=== PATIENT | female | born 1940 | race Caucasian/White ===

== ENCOUNTER 2023-04-16 10:09 | Emergency (ER) | payer OTHER, SELFPAY ==
[2023-04-16 10:15] VITALS: BP 142/88
--- NOTE | 2023-04-16 11:09 | ED.GENMED ---
History of Present Illness
General
Chief Complaint: Nose Bleed
Source: patient
Exam Limitations: none
Time Seen by Provider: 04/16/23 10:21
Nursing documentation reviewed up to this point in time: agreed with
Travel History
Have you had any contact with someone who has COVID-19?: No
Do you have any symptoms of coronavirus? Fever > 100 degrees, chills, cough, shortness of breath, sore throat, loss of taste or smell, muscle aches, or headache?: No
History of Present Illness
History of Present Illness:
Patient is a 82-year-old female who presents the ER for complaints of nosebleed from left nostril. She reports this is the fourth nosebleed in the past 3 weeks. With prior nosebleed she was able to stop them at home. She denies any blood
thinners. Denies any lightheaded dizziness.
Past History
Past History
ED Past Medical History: HTN, Other (Osteoarthritis ) and Other (DVT, pneumonia)
ED Past Surgical History: Appendectomy and Orthopedic (Bilateral knee replacements, lumbar laminectomy )
Social History
Tobacco: Non-smoker
Alcohol: None
Personal:
Living: with family
Family History
Family History: Hypertension
Review of Systems
Review of Systems
Allergies reviewed?: Yes
All Other Systems: ROS reviewed and negative except as documented in HPI and ROS
Constitutional: Reports no symptoms; Denies fever, fatigue or chills
EENT: Reports other (left nares with nose bleed )
Respiratory: Reports no symptoms
Cardiac: Reports no symptoms
ABD/GI: Reports no symptoms
Musculoskeletal: Reports no symptoms
Skin: Reports no symptoms
Neurological: Reports no symptoms; Denies dizzy or headache
Hematologic/Lymphatic: Reports no symptoms
Psychiatric: Reports no symptoms
Phy Exam
General Physical Exam
General Presentation: no apparent distress
General age: appears stated age
General Skin: warm and dry
General Habitus: normal
General Mental: alert
General Hydration: appears well hydrated
ENT Exam
ENT Exam: EOMI, neck supple and other (Left nares with oozing of bright red blood)
Eye Exam
Eye Exam: PERRL and EOMI
Eye Exam General: PERRL: bilateral and EOM intact: bilateral
Pupil Exam: Bilateral: round and reactive
Neurological Exam
Neurological Exam: alert and oriented x3
Musculoskeletal Exam
Musculoskeletal Exam: full ROM
Skin Exam
Skin Exam: normal color and warm/dry
Psychiatric Exam
Psychiatric Exam: normal mood/affect
Course
Orders/Labs/Results
Orders:
Orders
04/16/23 11:08
IV Insert/Care/Rem.- Treatment PRN
04/16/23 11:21
Complete Blood Count/With Diff Urgent
Comprehensive Metabolic Panel Urgent
Abnormal Lab Results
04/16/23
11:21
Lymphocytes % 20.2 L %
(20.5-51.1)
Creatinine 0.5 L mg/dL
(0.6-1.0)
Glucose 115 H mg/dl
(70-99)
04/16/23 11:21
04/16/23 11:21
Vital Signs
Initial and Last Documented VS:
Initial Vital Signs
Temp Pulse Resp BP Pulse Ox
98.6 F 64 18 142/88 99
04/16/23 10:15 04/16/23 10:15 04/16/23 10:15 04/16/23 10:15 04/16/23 10:15
Last Documented Vital Signs
Temp Pulse Resp BP Pulse Ox
98.6 F 77 18 156/81 99
04/16/23 10:15 04/16/23 13:19 04/16/23 13:19 04/16/23 13:19 04/16/23 13:19
Procedures
Nosebleed
Drug treatment: Lidocaine and Epinephrine
Treatment: Merocel packing
Post treatment bleeding: none- good control
MDM/Problems Addressed
Differential Diagnosis Includes:
Not limited to epistaxis, anemia
MDM/Problems Addressed:
Patient presented to the ER with left nares epistaxis. She has had 4 episodes in the past 3 weeks not associated with headaches. She denies any dizziness lightheadedness. She is not on blood thinners. She was packed with Murocel packing,
monitored here no further bleeding will DC with ENT. stable labs
Chronic conditions affecting care:
htn
*Pulse Oximetry
Patient hypoxic: no
*Critical Care Note
Total Time (30-74mins, 75-104mins- exclusive of procedures): Not Applicable
ED Attending Note
-
Portions of this chart may have been created with voice recognition software.� Occasional wrong word or��sound alike� substitutions may have occurred due to the inherent limitations of voice recognition software.
Discharge Plan
Departure
Patient Disposition: Home (Routine Discharge)
Date of Disposition: 04/16/23
Time of Disposition: 13:03
Patient with high blood pressure during this ER visit?: Yes
Covid-19: Not Applicable
Discharge Problem:
Epistaxis
Instructions: Nosebleeds (DC), BLOOD PRESSURE
Prescriptions:
No Action
levothyroxine 100 MCG tablet
100 mcg PO DAILY AT 0700
acetaminophen [Tylenol Extra Strength] 500 MG tablet
500 mg PO Q4HPRN PRN (Reason: pain)
ascorbic acid (vitamin C) [Vitamin C] 500 MG tablet
500 mg PO DAILY
vitamin B complex 1 TAB tablet
1 tab PO DAILY
multivitamin with folic acid [Tab-A-Shawn] 1 TABLET tablet
1 tab PO DAILY
Ginkgo Biloba
1 tab PO DAILY
Vitamin B12:
1 tab PO DAILY
Vitamin D3
1 tab PO DAILY
Sleep Aid
1 tab PO HS PRN (Reason: sleep)
sennosides [senna] 1 TABLET tablet
2 tab PO BID 0RF
diazepam 5 MG tablet
5 mg PO BID PRN (Reason: muscle spasm/sleep) Qty: 10 0RF
Rx Instructions:
*Do not take if taking Lorazepam
vit C,I-Qq-uxbth-lutein-zeaxan [PreserVision AREDS-2] 1 EACH capsule
1 ea PO BID Qty: 0 0RF
Rx Instructions:
resume in 7 days
docusate sodium 100 MG capsule
100 mg PO BID 0RF
morphine 15 MG tablet
15 mg PO Q4HPRN PRN (Reason: moderate-severe pain) Qty: 50 0RF
Rx Instructions:
dx lami-fusion
ongoing therapy
prednisone 10 MG tablet
40 mg PO TAPER Qty: 20 0RF
Rx Instructions:
take with food
ondansetron 4 MG tablet,disintegrating
4 mg PO Q6HPRN PRN (Reason: n/v) Qty: 20 1RF
Rx Instructions:
take 1/2h b/f Morphine if recurrent nausea
morphine 15 MG tablet extended release
15 mg PO DAILY Qty: 5 0RF
Rx Instructions:
Dx lami-fusion
ONGOING THERAPY
TAKE AT NOON
codeine-guaifenesin 473 ML liquid
120 ml PO TID PRN (Reason: cough) Qty: 120 0RF
Referrals:
Viviana Vergara DO [Family Provider] -
Rk Delgadillo MD [Active] -
Activity Restrictions/Additional Instructions:
Keep packing in place. Follow-up with ENT in the next 2 days for reevaluation/packing removal. Return if any worsening of symptoms.
Interventions
Interventions:
*Risk Screen - Suicide Last Done: 04/16/23 10:16
*General Assessment Last Done: 04/16/23 10:16
*Neglect/Abuse Screening Last Done: 04/16/23 10:16
ED- Fall Risk Assessment Last Done: 04/16/23 13:19
*ED COVID-19 Vaccine History Last Done: 04/16/23 10:16
*Nursing Disposition Last Done: 04/16/23 13:19
ED-EENT Assessment Last Done: 04/16/23 12:00
Discharge Date and Time
Discharge Date/Time: 04/16/23 13:20
[2023-04-16 11:46] LABS: % Basophils 0.7 % (0-2); % Eosinophils 2.2 % (0-6); % Immature Granulocytes 0.3 % (0-0.5); % Lymphocytes 20.2 % (20.5-51.1); % Monocytes 7.2 % (1.7-9.3); % Neutrophils 69.4 % (42.2-75.2); Absolute Basophils 0.1 10^3/uL (0-0.2); Absolute Eosinophils 0.2 10^3/uL (0-0.7); Absolute Lymphocytes 1.5 10^3/uL (1.2-3.4); Absolute Monocytes 0.5 10^3/uL (0.1-0.6); Absolute Neutrophils 5.1 10^3/uL (1.4-6.5); Hematocrit 42.2 % (37.0-47.0); Hemoglobin 14.4 g/dL (12.0-16.0); Mean Corp Hgb Conc. 34.1 g/dL (33.0-37.0); Mean Corpuscular Hgb 30.3 pg (27.0-31.0); Mean Corpuscular Volume 88.8 fL (81.0-99.0); Mean Platelet Volume 10.4 fL (7.4-10.4); Nucleated Red Blood Cells % 0 %; Platelet Count 263 10^3/uL (130-400); Red Blood Cell Count 4.75 10^6/uL (4.20-5.40); Red Cell Dist. Width 12.7 % (11.5-14.5); White Blood Cell Count 7.4 10^3/uL (4.8-10.8)
[2023-04-16 11:49] LABS: ALT (SGPT) 18 U/L (0-35); AST (SGOT) 22 U/L (14-36); Albumin 4.5 g/dl (3.5-5.0); Alkaline Phosphatase 101 U/L (38-126); Blood Urea Nitrogen 17 mg/dl (7-17); Calcium 9.4 mg/dl (8.4-10.2); Carbon Dioxide 25 mmol/L (22-30); Chloride 107 mmol/L (98-107); Glucose 115 mg/dl (70-99); Potassium 3.9 mmol/L (3.5-5.1); Sodium 138 mmol/L (135-145); Total Bilirubin 0.5 mg/dl (0.2-1.3); eGFR > 60.00
[2023-04-16 13:19] VITALS: BP 156/81
== END 2023-04-16 13:20 | disposition home or self-care (01) ==
LOC: EMR 10:09
PROVIDERS: Nurse Practitioner; EMERGENCY PHYSICIAN Emergency Medicine; FAMILY PHYSICIAN Internal Medicine
DX: R04.0 Epistaxis (principal); I10 Essential (primary) hypertension; M19.90 Unspecified osteoarthritis, unspecified site; Z82.49 Family history of ischemic heart disease and other diseases of the circulatory system; Z86.718 Personal history of other venous thrombosis and embolism; Z90.49 Acquired absence of other specified parts of digestive tract; Z96.653 Presence of artificial knee joint, bilateral
CPT/HCPCS: 99282; 30901; 80053; 85025

== ENCOUNTER → 2023-07-06 11:14 | Outpatient (REF) | payer MEDICARE, SELFPAY ==
[2023-07-06 15:52] LABS: ALT (SGPT) 18 U/L (0-35); AST (SGOT) 24 U/L (14-36); Albumin 4.4 g/dl (3.5-5.0); Alkaline Phosphatase 112 U/L (38-126); Blood Urea Nitrogen 7 mg/dl (7-17); Calcium 9.8 mg/dl (8.4-10.2); Carbon Dioxide 29 mmol/L (22-30); Chloride 99 mmol/L (98-107); Glucose 153 mg/dl (70-99); Potassium 3.7 mmol/L (3.5-5.1); Sodium 138 mmol/L (135-145); Total Bilirubin 0.6 mg/dl (0.2-1.3); Total Protein 7.2 g/dl (6.3-8.2); eGFR > 60.00
[2023-07-06 15:57] LABS: % Basophils 0.4 % (0-2); % Immature Granulocytes 0.7 % (0-0.5); % Monocytes 3.9 % (1.7-9.3); Absolute Basophils 0.1 10^3/uL (0-0.2); Absolute Eosinophils 0.2 10^3/uL (0-0.7); Absolute Immature Granulocytes 0.1 10^3/uL (0-0.05); Absolute Lymphocytes 2.2 10^3/uL (1.2-3.4); Absolute Monocytes 0.7 10^3/uL (0.1-0.6); Absolute Neutrophils 14.8 10^3/uL (1.4-6.5); Hematocrit 41.5 % (37.0-47.0); Hemoglobin 13.6 g/dL (12.0-16.0); Mean Corp Hgb Conc. 32.8 g/dL (33.0-37.0); Mean Corpuscular Hgb 29.6 pg (27.0-31.0); Mean Corpuscular Volume 90.2 fL (81.0-99.0); Mean Platelet Volume 10.6 fL (7.4-10.4); Nucleated Red Blood Cells % 0 %; Platelet Count 326 10^3/uL (130-400); Red Cell Dist. Width 12.8 % (11.5-14.5); White Blood Cell Count 18.1 10^3/uL (4.8-10.8)
[2023-07-06 16:23] LABS: TSH Reflex To Free T4 0.98 uIU/ml (0.47-4.68)
== END ==
LOC: HWLAB 11:14
PROVIDERS: ATTENDING PHYSICIAN Internal Medicine
DX: R35.0 Frequency of micturition (principal); R09.81 Nasal congestion; I10 Essential (primary) hypertension; E78.2 Mixed hyperlipidemia; E03.8 Other specified hypothyroidism; R05.1 Acute cough; R50.9 Fever, unspecified
CPT/HCPCS: 36415; 71046; 80053; 84443; 85025

== ENCOUNTER → 2023-12-19 14:09 | Outpatient (REF) | payer MEDICARE, SELFPAY | LOC: HWRAD 14:09 | PROVIDERS: ATTENDING PHYSICIAN Internal Medicine | DX: M79.644 Pain in right finger(s) (principal) | CPT/HCPCS: 73140 ==

== ENCOUNTER 2024-05-05 03:54 | Emergency (ER) | payer OTHER, SELFPAY ==
[2024-05-05 04:07] VITALS: BP 216/98
[2024-05-05 04:31] LABS: % Basophils 0.8 % (0-2); % Eosinophils 4.5 % (0-6); % Immature Granulocytes 0.3 % (0-0.5); % Lymphocytes 46.3 % (20.5-51.1); % Monocytes 7.6 % (1.7-9.3); % Neutrophils 40.5 % (42.2-75.2); Absolute Basophils 0.1 10^3/uL (0-0.2); Absolute Eosinophils 0.3 10^3/uL (0-0.7); Absolute Monocytes 0.5 10^3/uL (0.1-0.6); Absolute Neutrophils 2.6 10^3/uL (1.4-6.5); Hematocrit 42.6 % (37.0-47.0); Hemoglobin 14.5 g/dL (12.0-16.0); Mean Corpuscular Hgb 30.8 pg (27.0-31.0); Mean Corpuscular Volume 90.4 fL (81.0-99.0); Mean Platelet Volume 9.9 fL (7.4-10.4); Nucleated Red Blood Cells % 0 %; Platelet Count 241 10^3/uL (130-400); Red Blood Cell Count 4.71 10^6/uL (4.20-5.40); Red Cell Dist. Width 12.6 % (11.5-14.5); White Blood Cell Count 6.5 10^3/uL (4.8-10.8)
[2024-05-05 04:50] LABS: ALT (SGPT) 24 U/L (0-35); AST (SGOT) 26 U/L (14-36); Albumin 4.4 g/dl (3.5-5.0); Alkaline Phosphatase 98 U/L (38-126); Blood Urea Nitrogen 15 mg/dl (7-17); Calcium 9.8 mg/dl (8.4-10.2); Carbon Dioxide 28 mmol/L (22-30); Chloride 104 mmol/L (98-107); Glucose 112 mg/dl (70-99); Potassium 3.6 mmol/L (3.5-5.1); Sodium 141 mmol/L (135-145); Total Bilirubin 0.7 mg/dl (0.2-1.3); Total Protein 7.3 g/dl (6.3-8.2); eGFR > 60.00
--- NOTE | 2024-05-05 06:47 | ED.GENMED ---
History of Present Illness
General
Chief Complaint: Blood Pressure Problem
Time Seen by Provider: 05/05/24 06:47
History of Present Illness
History of Present Illness:
TIME OF INITIAL ENCOUNTER: 6:50 AM
HPI: The patient presents due to blood pressure concerns. At times, the patient has severely elevated blood pressures despite being compliant with amlodipine 5 mg daily. Yesterday, she took an extra dose of amlodipine 5 mg in the evening. She has
headaches at times but currently feels improved. Her blood pressure upon arrival was 216 systolic but on recheck spontaneously was down to 162. She also feels stressed about living alone and describes a strong anxiety component as well. She has
no chest pain.
EXAM:
GENERAL: Well appearing in no distress, blood pressure now is in the room was 162/80
HEENT: Moist oral mucosa
CARDIOVASCULAR: No murmurs, normal heart rate, regular rhythm, No chest wall tenderness
PULMONARY: No respiratory distress, breath sounds are clear and equal
ABDOMEN: Soft with no peritoneal signs, no tenderness
NEUROLOGIC: Excellent strength all extremities, no coordination deficits
PSYCHIATRIC: Appropriate mental status, normal insight and judgement, appears somewhat anxious
EXTREMITIES: Nontender, no edema, moves all extremities equally
SKIN: No rash, no lesions
NUMBER AND COMPLEXITY OF PROBLEMS ADDRESSED AT THE ENCOUNTER
� Chronic conditions affecting care: High blood pressure, hypothyroidism, anxiety
� Acute Exacerbation and/or Progression of Chronic Illness: This is an acute problem
� Differential Diagnosis includes: Labile hypertension, anxiety, doubt medication noncompliance
AMOUNT AND/OR COMPLEXITY OF DATA TO BE REVIEWED AND ANALYZED
� I performed an independent evaluation of and my interpretation is:
EKG: Sinus 69, left axis deviation, nonspecific ST abnormality
CT:
X-rays:
Laboratory Studies: CBC and chemistries unremarkable, TSH normal
Other:
� Review of other/old records: The patient was seen here in April 2023 with a nosebleed
� Clinical information was obtained by an independent historian: Spoke to daughter at bedside
� Prescriptions/Medications Considered but not given:
� Further testing considered but not performed:
RISK OF COMPLICATIONS AND/OR MORBIDITY OR MORTALITY OF PATIENT MANAGEMENT
� Social determinants of health affecting care: Lives at home alone
� Discussion with other providers:
� Escalation of care including admission/observation vs risk of discharge considered: The patient's initial blood pressure was over 200 systolic but without intervention it was down to 162 systolic. Strong suspect anxiety
component. Will add short course of alprazolam. Discussed risks and benefits of this medication and high addiction potential. She will only use intermittently and rarely. Will increase amlodipine to 10 mg daily. She states that in the past her
blood pressures have really never been below 140 systolic.
ANY OTHER UPDATES:
Past History
Past History
ED Past Medical History: HTN, Other (Osteoarthritis ) and Other (DVT, pneumonia)
ED Past Surgical History: Appendectomy and Orthopedic (Bilateral knee replacements, lumbar laminectomy )
Social History
Tobacco: Non-smoker
Alcohol: None
Personal:
Living: with family
Family History
Family History: Hypertension
Phy Exam
Physical Exam
Physical Exam:
See HPI
Course
Orders/Labs/Results
Orders:
Orders
05/05/24 04:11
Electrocardiogram (*1) Urgent
Reason for Study: Hypertension, Benign
05/05/24 04:12
EKG- Treatment ONCE
05/05/24 04:20
CMP [Comprehensive Metabolic Panel] Urgent
Complete Blood Count/With Diff Urgent
TSH Reflex To Free T4 Urgent
Comment: ADD ON
05/05/24 06:47
Add On- LAB Urgent
Tests Added?: tsh reflex fT4
Abnormal Lab Results
05/05/24
04:20
Neutrophils % 40.5 L %
(42.2-75.2)
Glucose 112 H mg/dl
(70-99)
05/05/24 04:20
05/05/24 04:20
Vital Signs
Blood pressure: 162/80
Initial and Last Documented VS:
Initial Vital Signs
Temp Pulse Resp BP Pulse Ox
36.4 C 80 22 216/98 96
05/05/24 04:07 05/05/24 04:07 05/05/24 04:07 05/05/24 04:07 05/05/24 04:07
Last Documented Vital Signs
Temp Pulse Resp BP Pulse Ox
36.6 C 69 18 162/80 96
05/05/24 07:40 05/05/24 07:40 05/05/24 07:40 05/05/24 07:40 05/05/24 07:40
*Critical Care Note
Total Time (30-74mins, 75-104mins- exclusive of procedures): Not Applicable
ED Attending Note
-
Portions of this chart may have been created with voice recognition software.� Occasional wrong word or��sound alike� substitutions may have occurred due to the inherent limitations of voice recognition software.
Discharge Plan
Departure
Patient Disposition: Home (Routine Discharge)
Date of Disposition: 05/05/24
Time of Disposition: 07:03
Patient with high blood pressure during this ER visit?: Yes
Discharge Problem:
HTN (hypertension)
Instructions: High Blood Pressure (DC), BLOOD PRESSURE
Prescriptions:
New
amlodipine 10 mg tablet
10 mg PO DAILY Qty: 30 0RF
alprazolam 0.5 mg tablet
0.5 mg PO DAILY PRN (Reason: anxiety) Qty: 14 0RF
No Action
levothyroxine 100 MCG tablet
100 mcg PO DAILY AT 0700
acetaminophen [Tylenol Extra Strength] 500 MG tablet
500 mg PO Q4HPRN PRN (Reason: pain)
ascorbic acid (vitamin C) [Vitamin C] 500 MG tablet
500 mg PO DAILY
vitamin B complex 1 TAB tablet
1 tab PO DAILY
multivitamin with folic acid [Tab-A-Shawn] 1 TABLET tablet
1 tab PO DAILY
Ginkgo Biloba
1 tab PO DAILY
Vitamin B12:
1 tab PO DAILY
Vitamin D3
1 tab PO DAILY
Sleep Aid
1 tab PO HS PRN (Reason: sleep)
sennosides [senna] 1 TABLET tablet
2 tab PO BID 0RF
diazepam 5 MG tablet
5 mg PO BID PRN (Reason: muscle spasm/sleep) Qty: 10 0RF
Rx Instructions:
*Do not take if taking Lorazepam
vit C,Y-Fc-uoajx-lutein-zeaxan [PreserVision AREDS-2] 1 EACH capsule
1 ea PO BID Qty: 0 0RF
Rx Instructions:
resume in 7 days
docusate sodium 100 MG capsule
100 mg PO BID 0RF
morphine 15 MG tablet
15 mg PO Q4HPRN PRN (Reason: moderate-severe pain) Qty: 50 0RF
Rx Instructions:
dx lami-fusion
ongoing therapy
prednisone 10 MG tablet
40 mg PO TAPER Qty: 20 0RF
Rx Instructions:
take with food
ondansetron 4 MG tablet,disintegrating
4 mg PO Q6HPRN PRN (Reason: n/v) Qty: 20 1RF
Rx Instructions:
take 1/2h b/f Morphine if recurrent nausea
morphine 15 MG tablet extended release
15 mg PO DAILY Qty: 5 0RF
Rx Instructions:
Dx lami-fusion
ONGOING THERAPY
TAKE AT NOON
codeine-guaifenesin 473 ML liquid
120 ml PO TID PRN (Reason: cough) Qty: 120 0RF
Activity Restrictions/Additional Instructions:
I am sending a prescription for a higher dose of amlodipine. We will change from 5 mg to 10 mg daily. I am also sending a prescription for Xanax (alprazolam) 0.5 mg. Uses only intermittently and rarely and I recommend that you not take this every
day. If you start taking it every day, it has a very high risk of addiction potential. Follow with your primary care doctor for blood pressure recheck.
Interventions
Interventions:
*Risk Screen - Suicide Last Done: 05/05/24 04:07
*General Assessment Last Done: 05/05/24 07:06
*Neglect/Abuse Screening Last Done: 05/05/24 04:07
*ED- Fall Risk Assessment Last Done: 05/05/24 07:06
*ED COVID-19 Vaccine History Last Done: 05/05/24 07:06
*Nursing Disposition Last Done: 05/05/24 07:40
ED- Cardiac Assessment Last Done: 05/05/24 07:06
ED- Neurological Assessment Last Done: 05/05/24 07:06
ED- Pulmonary Assessment Last Done: 05/05/24 07:06
Discharge Date and Time
Discharge Date/Time: 05/05/24 07:35
Print Language: [id number]
[2024-05-05 07:06] VITALS: BP 162/80; BMI 31.9
--- NOTE | 2024-05-05 07:38 | EDRN ---
Reviewed discharge instructions with patient. Verbalized understanding. Ambulated with steady gait to the lobby.
[2024-05-05 07:40] VITALS: BP 162/80
[2024-05-05 08:13] LABS: TSH Reflex To Free T4 1.16 uIU/ml (0.47-4.68)
== END 2024-05-05 07:35 | disposition home or self-care (01) ==
LOC: EMR 03:54
PROVIDERS: Emergency Medicine; EMERGENCY PHYSICIAN Emergency Medicine; FAMILY PHYSICIAN Internal Medicine
DX: I10 Essential (primary) hypertension (principal); Z60.2 Problems related to living alone
CPT/HCPCS: 99284; 80053; 84443; 85025; 93005

== ENCOUNTER 2024-06-23 08:19 | Emergency (ER) | payer OTHER, SELFPAY ==
[2024-06-23 08:23] VITALS: BP 181/100
[2024-06-23 08:43] VITALS: BP 170/104
[2024-06-23 09:00] VITALS: BP 157/67
[2024-06-23 09:47] LABS: Hemoglobin 14.1 g/dL (12.0-16.0); Mean Corp Hgb Conc. 34.4 g/dL (33.0-37.0); Mean Corpuscular Hgb 30.8 pg (27.0-31.0); Mean Corpuscular Volume 89.5 fL (81.0-99.0); Mean Platelet Volume 9.9 fL (7.4-10.4); Platelet Count 232 10^3/uL (130-400); Red Blood Cell Count 4.58 10^6/uL (4.20-5.40); White Blood Cell Count 5.1 10^3/uL (4.8-10.8)
[2024-06-23 09:56] LABS: Blood Urea Nitrogen 12 mg/dl (7-17); Calcium 9.4 mg/dl (8.4-10.2); Carbon Dioxide 26 mmol/L (22-30); Chloride 108 mmol/L (98-107); Glucose 111 mg/dl (70-99); Sodium 141 mmol/L (135-145); eGFR > 60.00
[2024-06-23 10:00] VITALS: BP 110/98
--- NOTE | 2024-06-23 10:01 | ED.GENMED ---
History of Present Illness
General
Chief Complaint: Blood Pressure Problem
Time Seen by Provider: 06/23/24 09:05
History of Present Illness
History of Present Illness:
83-year-old female presents the emergency department for evaluation of fluctuating blood pressures. She was seen in the emergency department 2 months ago for this at which time her amlodipine was uptitrated from 5 mg to 10 mg, she states that this
caused her to develop 'an allergy' to amlodipine and as a result she is currently only on olmesartan 5 mg. She appears to take her blood pressure several times a day and this creates a perseveration and anxiety related to high blood pressure
readings. She reports headaches and malaise whenever she has high blood pressure.
Past History
Past History
ED Past Medical History: HTN, Other (Osteoarthritis ) and Other (DVT, pneumonia)
ED Past Surgical History: Appendectomy and Orthopedic (Bilateral knee replacements, lumbar laminectomy )
Social History
Tobacco: Non-smoker
Alcohol: None
Personal:
Living: with family
Family History
Family History: Hypertension
Review of Systems
Review of Systems
Allergies reviewed?: Yes
All Other Systems: ROS reviewed and negative except as documented in HPI and ROS
Phy Exam
Physical Exam
Physical Exam:
GEN: Well appearing, NAD, WDWN
HEENT: Oral mucosa moist, no scleral icterus
Cardiac: Regular rate
Lung: No respiratory distress, no tachypnea
MSK: No gross deformity or injuries
Skin: Good color, no pallor or jaundice, no rashes
Neuro: AO x3, moves all extremities freely
Psych: Calm, cooperative
Course
Orders/Labs/Results
Orders:
Orders
06/23/24 08:25
Electrocardiogram (*1) Urgent
Reason for Study: Hypertension, Benign
EKG- Treatment ONCE
06/23/24 09:37
Basic Metabolic Panel Urgent
Complete Blood Count/No Diff Urgent
Cortisol, Random Urgent
TSH Urgent
Abnormal Lab Results
06/23/24
09:37
Chloride 108 H mmol/L
(98-107)
Creatinine 0.5 L mg/dL
(0.6-1.0)
Glucose 111 H mg/dl
(70-99)
06/23/24 09:37
06/23/24 09:37
Vital Signs
Initial and Last Documented VS:
Initial Vital Signs
Temp Pulse Resp BP Pulse Ox
98.2 F 84 16 181/100 98
06/23/24 08:23 06/23/24 08:23 06/23/24 08:23 06/23/24 08:23 06/23/24 08:23
Last Documented Vital Signs
Temp Pulse Resp BP Pulse Ox
98.2 F 64 16 110/98 97
06/23/24 08:23 06/23/24 10:00 06/23/24 10:02 06/23/24 10:00 06/23/24 10:00
MDM/Problems Addressed
MDM/Problems Addressed:
Patient's blood pressure is quite labile as she dropped from the 180 systolic to 110s systolic despite lack of treatment in the ED. There is most likely a psychosomatic component to this as she seems to perseverate about her high blood pressure and
check it excessively. Certainly she does seem to have some situational anxiety associated with this. Offered her a trial course of propranolol to help with both anxiety and blood pressure control. She will remain on olmesartan at this time. She
is also advised to discontinue daily blood pressure assessments
*Critical Care Note
Total Time (30-74mins, 75-104mins- exclusive of procedures): Not Applicable
ED Attending Note
-
Portions of this chart may have been created with voice recognition software.� Occasional wrong word or��sound alike� substitutions may have occurred due to the inherent limitations of voice recognition software.
Discharge Plan
Departure
Patient Disposition: Home (Routine Discharge)
Date of Disposition: 06/23/24
Time of Disposition: 10:35
Patient with high blood pressure during this ER visit?: No
Discharge Problem:
Labile hypertension
Instructions: High Blood Pressure (DC)
Prescriptions:
New
propranolol 80 mg capsule,extended release 24 hr
80 mg PO HS Qty: 30 0RF
No Action
levothyroxine 100 MCG tablet
100 mcg PO DAILY AT 0700
acetaminophen [Tylenol Extra Strength] 500 MG tablet
500 mg PO Q4HPRN PRN (Reason: pain)
ascorbic acid (vitamin C) [Vitamin C] 500 MG tablet
500 mg PO DAILY
vitamin B complex 1 TAB tablet
1 tab PO DAILY
multivitamin with folic acid [Tab-A-Shawn] 1 TABLET tablet
1 tab PO DAILY
Ginkgo Biloba
1 tab PO DAILY
Vitamin B12:
1 tab PO DAILY
Vitamin D3
1 tab PO DAILY
Sleep Aid
1 tab PO HS PRN (Reason: sleep)
sennosides [senna] 1 TABLET tablet
2 tab PO BID 0RF
diazepam 5 MG tablet
5 mg PO BID PRN (Reason: muscle spasm/sleep) Qty: 10 0RF
Rx Instructions:
*Do not take if taking Lorazepam
vit C,G-Cd-sukii-lutein-zeaxan [PreserVision AREDS-2] 1 EACH capsule
1 ea PO BID Qty: 0 0RF
Rx Instructions:
resume in 7 days
docusate sodium 100 MG capsule
100 mg PO BID 0RF
morphine 15 MG tablet
15 mg PO Q4HPRN PRN (Reason: moderate-severe pain) Qty: 50 0RF
Rx Instructions:
dx lami-fusion
ongoing therapy
prednisone 10 MG tablet
40 mg PO TAPER Qty: 20 0RF
Rx Instructions:
take with food
ondansetron 4 MG tablet,disintegrating
4 mg PO Q6HPRN PRN (Reason: n/v) Qty: 20 1RF
Rx Instructions:
take 1/2h b/f Morphine if recurrent nausea
morphine 15 MG tablet extended release
15 mg PO DAILY Qty: 5 0RF
Rx Instructions:
Dx lami-fusion
ONGOING THERAPY
TAKE AT NOON
codeine-guaifenesin 473 ML liquid
120 ml PO TID PRN (Reason: cough) Qty: 120 0RF
amlodipine 10 mg tablet
10 mg PO DAILY Qty: 30 0RF
alprazolam 0.5 mg tablet
0.5 mg PO DAILY PRN (Reason: anxiety) Qty: 14 0RF
Referrals:
Darvin Hickey DO [Family Provider] -
Interventions
Interventions:
*Risk Screen - Suicide Last Done: 06/23/24 08:23
*General Assessment Last Done: 06/23/24 08:38
*Neglect/Abuse Screening Last Done: 06/23/24 08:23
*ED- Fall Risk Assessment Last Done: 06/23/24 08:37
*ED COVID-19 Vaccine History Last Done: 06/23/24 08:37
*Nursing Disposition Last Done: 06/23/24 10:43
ED- Cardiac Assessment Last Done: 06/23/24 08:39
ED- Neurological Assessment Last Done: 06/23/24 08:39
ED- Pulmonary Assessment Last Done: 06/23/24 08:39
Discharge Date and Time
Discharge Date/Time: 06/23/24 10:45
Print Language: [id number]
[2024-06-23 10:28] LABS: Cortisol, Random 7.3 ug/dl; TSH 1.83 uIU/ml (0.47-4.68)
== END 2024-06-23 10:45 | disposition home or self-care (01) ==
LOC: EMR 08:19
PROVIDERS: Physician Assistant; EMERGENCY PHYSICIAN Emergency Medicine; FAMILY PHYSICIAN Family Medicine
DX: I10 Essential (primary) hypertension (principal); F41.9 Anxiety disorder, unspecified; M19.90 Unspecified osteoarthritis, unspecified site; Z86.718 Personal history of other venous thrombosis and embolism; Z87.01 Personal history of pneumonia (recurrent); Z96.653 Presence of artificial knee joint, bilateral; Z88.1 Allergy status to other antibiotic agents; Z88.8 Allergy status to other drugs, medicaments and biological substances
CPT/HCPCS: 99283; 80048; 82533; 84443; 85027; 93005